=== PATIENT | female | born 1960 | race Hispanic/Latino ===

== ENCOUNTER 2019-03-26 08:54 | Day surgery (SDC) | payer MEDICAID ==
[~2019-03-26] VITALS: Ht 152.4 cm; Wt 75.3 kg
[~2019-03-26 08:54] MED LIST: SODIUM CHLORIDE 0.9% 1000ML 1,000 ML IV ONE
[2019-03-26] MEDS ORDERED: SIMV-43 PO (09:46)
[2019-03-26] MEDS ORDERED: LORA-192 PO (09:46)
[2019-03-26] MEDS ORDERED: TOPI50CA6 PO (09:46)
[2019-03-26] MEDS ORDERED: GLIM2TAB4 PO (09:46)
[2019-03-26] MEDS ORDERED: PHEN100C9 PO (09:46)
[2019-03-26] MEDS ORDERED: ELTR50TA PO (09:46)
[2019-03-26] MEDS ORDERED: LEVE500T19 PO (09:46)
[2019-03-26] MEDS ORDERED: PRED20TA3 PO (09:46)
[2019-03-26] MEDS ORDERED: METF-446 PO (09:46)
[2019-03-26] MEDS ORDERED: PROPOFOL 10 MG/ML 20ML VIAL IV ONE (09:52)
[2019-03-26] MEDS ORDERED: EPINEPHRINE 1 MG/ML AMPULE ONE (10:13)
[2019-03-26 10:27] VITALS: BP 117/61
[2019-03-26 10:32] VITALS: BP 110/55
[2019-03-26 10:37] VITALS: BP 113/56
[2019-03-26 10:42] VITALS: BP 112/56
== END 2019-03-26 11:00 | disposition home or self-care (01) ==
LOC: ENDO 08:54 → DAH 08:54 → ENDO 11:00
PROVIDERS: ATTEND Internal Medicine
DX: K59.00 Constipation, unspecified (principal); K63.5 Polyp of colon; K64.0 First degree hemorrhoids; K57.30 Diverticulosis of large intestine without perforation or abscess without bleeding; E11.9 Type 2 diabetes mellitus without complications; I10 Essential (primary) hypertension; G40.909 Epilepsy, unspecified, not intractable, without status epilepticus; E78.00 Pure hypercholesterolemia, unspecified; M19.90 Unspecified osteoarthritis, unspecified site; F41.9 Anxiety disorder, unspecified; Z86.010 Personal history of colon polyps; Z79.899 Other long term (current) drug therapy; Z79.84 Long term (current) use of oral hypoglycemic drugs; Z90.49 Acquired absence of other specified parts of digestive tract; Z98.890 Other specified postprocedural states; Z82.49 Family history of ischemic heart disease and other diseases of the circulatory system; Z83.3 Family history of diabetes mellitus; Z82.5 Family history of asthma and other chronic lower respiratory diseases
CPT/HCPCS: 45381; 45385; 82948 ×2; 88305; A4215; A4221; A4222; A4223; A4606; A4615; A4649; A4663; J0171; J2704; J7030